=== PATIENT | male | born 1935 | race Caucasian/White ===

== ENCOUNTER → 2023-06-23 09:32 | Outpatient (REF) | payer OTHER, SELFPAY | LOC: HWRAD 09:32 | PROVIDERS: ATTENDING PHYSICIAN Nurse Practitioner Family | DX: R10.32 Left lower quadrant pain (principal) | CPT/HCPCS: 74018 ==

== ENCOUNTER 2024-02-14 11:00 | Emergency (ER) | payer OTHER, SELFPAY ==
[2024-02-14 11:20] VITALS: BP 161/71
--- NOTE | 2024-02-14 11:22 | ED.GENMED ---
ED Provider Triage
<Lacho Delcid PA-C - Last Filed: 02/14/24 11:23>
-
Patient seen by provider in Triage?: Seen in Triage
88-year-old male presents complaining of right testicular pain. He injured his right testicle Monday night by bending 1 leg over the other and he thinks he may have crushed his testicle. He notes persistent pain. He did note initially darker
colored urine which is since resolved. No fevers. Seen by family doctor and sent in for ultrasound
Ultrasound of scrotum ordered through triage. He looks stable and nontoxic otherwise.
Medical screening examination performed by healthcare provider at triage. He warrants further assessment
History of Present Illness
<Lacho Delcid PA-C - Last Filed: 02/14/24 11:23>
General
Chief Complaint: Male Genito-Urinary Symptoms
Time Seen by Provider: 02/14/24 13:12
<Aebl Hutchins DO - Last Filed: 02/14/24 13:37>
General
Source: patient
History of Present Illness
History of Present Illness:
88-year-old male presents to the emergency room complaining of right testicular pain which began 5 days ago. Patient suspected he injured his testicle while he was sitting on the couch and leaned over. He began having significant pain at that
time. Pain is increased in intensity. He has noted a little bit of cloudy reddish urine at times when he is urinated. This is cleared up over the past couple days. He went to his primary care doctor who referred him here to have an ultrasound
performed. However his doctor stated this is likely an infection. Patient denies any dysuria. No fevers or chills. No abdominal pain.
Phy Exam
<DO Xavi Lindsey Last Filed: 02/14/24 13:37>
Physical Exam
Physical Exam:
General: Awake, Alert, Oriented X3. No acute distress.
Vitals: unremarkable
Head: Atraumatic
Eyes: Pupils equal, EOMI
Throat: Airway intact, no exudates
Neck: Trachea midline
Abd: Soft, Nontender, No pulsatile mass
Genitalia: Normal uncircumcised penis. Evaluation of the left testicle reveals normal texture and anatomy to palpation. Left testicles nontender. Right testicle is significant larger than the right. It is diffusely tender. No specific mass
noted.
Neuro: Grossly nonfocal
Skin: Warm, dry, no rash
Extremities: pulses equal b/l, no edema
Course
<Lacho Delcid PA-C - Last Filed: 02/14/24 11:23>
Orders/Labs/Results
Orders:
Orders
02/14/24 11:21
US Scrotum Urgent
Comment:
Reason For Exam: pain in right testicle
02/14/24 11:35
Urinalysis Reflex To Culture Urgent
Date Specimen was Collected: 02/14/24
Time Specimen was Collected: 11:34
Urine Microscopic Reflex Cult Urgent
Urine Culture Urgent
GLENN Source: U
Specimen Description:
Date Specimen was Collected: 02/14/24
Time Specimen was Collected: 11:34
Abnormal Lab Results
02/14/24
11:35
Ur Occult Blood Reflex 1+ A
(Negative)
Urine Urobilinogen 3+ A
(Neg - 1+)
Leukocyte Esterase Rfl 2+ A
(Negative)
Vital Signs
Initial and Last Documented VS:
Initial Vital Signs
Temp Pulse Resp BP Pulse Ox
97.7 F 50 16 161/71 98
02/14/24 11:20 02/14/24 11:20 02/14/24 11:20 02/14/24 11:20 02/14/24 11:20
Last Documented Vital Signs
Temp Pulse Resp BP Pulse Ox
97.7 F 50 16 161/71 98
02/14/24 11:20 02/14/24 11:20 02/14/24 11:20 02/14/24 11:20 02/14/24 11:20
<Abel Hutchins DO - Last Filed: 02/14/24 13:37>
Orders/Labs/Results
Orders:
Orders
02/14/24 11:21
US Scrotum Urgent
Comment:
Reason For Exam: pain in right testicle
02/14/24 11:35
Urinalysis Reflex To Culture Urgent
Date Specimen was Collected: 02/14/24
Time Specimen was Collected: 11:34
Urine Microscopic Reflex Cult Urgent
Urine Culture Urgent
GLENN Source: U
Specimen Description:
Date Specimen was Collected: 02/14/24
Time Specimen was Collected: 11:34
Abnormal Lab Results
02/14/24
11:35
Ur Occult Blood Reflex 1+ A
(Negative)
Urine Urobilinogen 3+ A
(Neg - 1+)
Leukocyte Esterase Rfl 2+ A
(Negative)
Vital Signs
Initial and Last Documented VS:
Initial Vital Signs
Temp Pulse Resp BP Pulse Ox
97.7 F 50 16 161/71 98
02/14/24 11:20 02/14/24 11:20 02/14/24 11:20 02/14/24 11:20 02/14/24 11:20
Last Documented Vital Signs
Temp Pulse Resp BP Pulse Ox
97.7 F 50 16 161/71 98
02/14/24 11:20 02/14/24 11:20 02/14/24 11:20 02/14/24 11:20 02/14/24 11:20
<Abel Hutchins DO - Last Filed: 02/14/24 13:37>
MDM/Problems Addressed
Differential Diagnosis Includes:
Testicular mass, orchitis, testicular hematoma or rupture
MDM/Problems Addressed:
Ultrasound shows a significant large right testicle with increased vascularity suggestive of orchitis. No hematoma noted. No mass noted. Patient requires antibiotics for orchitis. His primary care provider sent a prescription for Cipro which
would be an appropriate antibiotic.
<Abel Hutchins DO - Last Filed: 02/14/24 13:37>
*Radiology
Radiology exam reviewed: radiology read reviewed
*Pulse Oximetry
Patient hypoxic: no
*Critical Care Note
Total Time (30-74mins, 75-104mins- exclusive of procedures): Not Applicable
<DO Xavi Lindsey Last Filed: 02/14/24 13:37>
Patient Management
Social determinants of health affecting care: Strong social support
ED Attending Note
<Lacho Delcid PA-C - Last Filed: 02/14/24 11:23>
-
Portions of this chart may have been created with voice recognition software.� Occasional wrong word or��sound alike� substitutions may have occurred due to the inherent limitations of voice recognition software.
Discharge Plan
Departure
Patient Disposition: Home (Routine Discharge)
Date of Disposition: 02/14/24
Time of Disposition: 13:30
Patient with high blood pressure during this ER visit?: Yes
Condition: Good
Discharge Problem:
Acute orchitis
Instructions: Epididymitis and orchitis, BLOOD PRESSURE
Referrals:
Buster Patel MD [Active] -
Activity Restrictions/Additional Instructions:
Take antibiotics prescribed by your primary care doctor. You can use Tylenol and or ibuprofen for discomfort. Wear tight underpants for support. I provided you a phone number for a urologist. You should follow-up with them particularly if you
are not feeling better in 3 to 4 days.
Interventions
Interventions:
*Risk Screen - Suicide Last Done: 02/14/24 11:20
*General Assessment Last Done: 02/14/24 11:20
*Neglect/Abuse Screening Last Done: 02/14/24 11:20
*ED COVID-19 Vaccine History Last Done: 02/14/24 11:20
Discharge Date and Time
Print Language: TOGOLESE
[2024-02-14 13:19] LABS: Urine Albumin Trace (Neg - Trace); Urine Bilirubin Negative (Negative); Urine Character Very Cloudy (Clear); Urine Color Yellow; Urine Glucose Negative (Negative); Urine Ketone Negative (Negative); Urine Leukocyte 2+ (Negative); Urine Nitrite Negative (Negative); Urine Occult Blood 1+ (Negative); Urine Specific Gravity 1.015 (<1.030); Urine Urobilinogen 3+ (Neg - 1+)
[2024-02-14 13:40] VITALS: BP 124/55
[2024-02-14 14:10] LABS: Urine Hyaline Cast 0-2 /LPF (0-2)
[2024-02-14 14:11] LABS: Urine Bacteria Many (Negative); Urine White Cell >100 /HPF (0-5)
== END 2024-02-14 13:49 | disposition home or self-care (01) ==
LOC: EMR 11:00
PROVIDERS: Physician Assistant; EMERGENCY PHYSICIAN Emergency Medicine; FAMILY PHYSICIAN Internal Medicine Geriatric Medicine
DX: N45.2 Orchitis (principal)
CPT/HCPCS: 99284; 76870; 81003; 81015; 87077; 87086; 93976